=== PATIENT | male | born 1990 | race Hispanic/Latino ===

== ENCOUNTER 2020-06-29 10:47 | Emergency (ER) | payer SELFPAY ==
[2020-06-29] MEDS ORDERED: SODIUM CHLORIDE 0.9% 1000ML 1,000 ML IV ONE (11:02)
[2020-06-29] MEDS ORDERED: LORAZEPAM 2 MG/ML 1 ML VIAL ONE (11:03)
[2020-06-29 11:12] LABS: BASOPHILS % (AUTO) 0.3 % (0.0-5.0); EOSINOPHILS % (AUTO) 0.9 % (0.0-8.0); HEMATOCRIT 46.1 % (42-54); LYMPHOCYTES % (AUTO) 17.7 % (21.0-51.0); MEAN CORPUSCULAR HEMOGLOBIN 31.3 pg (27.0-33.0); MEAN CORPUSCULAR HGB CONC 34.9 g/dL (32.0-36.0); MEAN CORPUSCULAR VOLUME 89.7 fL (79-99); MONOCYTES % (AUTO) 8.2 % (3.0-13.0); NEUTROPHILS % (AUTO) 72.6 % (40.0-77.0); PLATELET COUNT (AUTO) 324 K/uL (130-400); RED BLOOD CELL COUNT(AUTO) 5.14 MIL/uL (4.50-6.20); WHITE BLOOD COUNT (AUTO) 11.9 K/uL (4.8-10.8)
[2020-06-29 11:28] LABS: ALBUMIN 4.6 g/dL (3.5-5.0); BILIRUBIN,TOTAL 1.1 mg/dL (0.2-1.0); CREATININE 1.5 mg/dL (0.5-1.5); TOTAL PROTEIN, SERUM 8.1 g/dL (6.0-8.3)
[2020-06-29] MEDS ORDERED: POTASSIUM CHLORIDE 20 MEQ ERTAB PO ONE (12:00)
== END 2020-06-29 12:37 | disposition home or self-care (01) ==
LOC: EDH 10:47
DX: K12.0 Recurrent oral aphthae (principal); T43.625A Adverse effect of amphetamines, initial encounter; Y92.89 Other specified places as the place of occurrence of the external cause; F31.9 Bipolar disorder, unspecified; F20.9 Schizophrenia, unspecified; Z72.0 Tobacco use
CPT/HCPCS: 36415; 71045; 80053; 84484; 85025; 93005; 96361; 96374; 99285; J2060; J7030

== ENCOUNTER 2021-11-10 02:15 | Emergency (ER) | payer SELFPAY ==
[~2021-11-10] VITALS: Ht 162.6 cm; Wt 65.3 kg
[2021-11-10] MEDS ORDERED: OCTYL 2-CYANOACRYLATE 1 EACH TP ONE (03:24)
[2021-11-10 03:32] VITALS: BP 119/68
== END 2021-11-10 03:34 ==
LOC: EDH 02:15
DX: S61.412A Laceration without foreign body of left hand, initial encounter (principal); S80.812A Abrasion, left lower leg, initial encounter; Z65.3 Problems related to other legal circumstances; W26.8XXA Contact with other sharp object(s), not elsewhere classified, initial encounter; Y93.89 Activity, other specified; Y92.89 Other specified places as the place of occurrence of the external cause; Y99.8 Other external cause status
CPT/HCPCS: 12001

== ENCOUNTER → 2022-04-20 | Emergency (ER) | payer OTHER | END | disposition left against medical advice (07) | LOC: EDH 22:23 | DX: R07.89 Other chest pain (principal); Z53.21 Procedure and treatment not carried out due to patient leaving prior to being seen by health care provider ==

== ENCOUNTER 2022-08-29 19:38 | Emergency (ER) | payer OTHER ==
[~2022-08-29] VITALS: Ht 165.1 cm; Wt 59.0 kg
[2022-08-29 21:02] LABS: BASOPHILS % (AUTO) 0.3 % (0.0-5.0); HEMATOCRIT 42.1 % (42-54); LYMPHOCYTES % (AUTO) 31.2 % (21.0-51.0); MEAN CORPUSCULAR HEMOGLOBIN 31.3 pg (27.0-33.0); MEAN CORPUSCULAR HGB CONC 34.9 g/dL (32.0-36.0); MEAN CORPUSCULAR VOLUME 89.6 fL (79-99); MONOCYTES % (AUTO) 6.6 % (3.0-13.0); NEUTROPHILS % (AUTO) 60.5 % (40.0-77.0); PLATELET COUNT (AUTO) 283 K/uL (130-400); RED CELL DISTRIBUTION WIDTH 11.9 % (11.0-15.5); WHITE BLOOD COUNT (AUTO) 9.6 K/uL (4.8-10.8)
[2022-08-29 21:05] LABS: APPEARANCE,URINE CLEAR (CLEAR); BILIRUBIN,URINE NEGATIVE (NEGATIVE); COLOR,URINE YELLOW (YELLOW); GLUCOSE, URINE (UA) NEGATIVE (NEGATIVE); KETONES,URINE 5 mg/dL (NEGATIVE); LEUKOCYTE ESTERASE ,URINE NEGATIVE Leu/uL (NEGATIVE); NITRATE,URINE NEGATIVE (NEGATIVE); OCCULT BLOOD,URINE NEGATIVE (NEGATIVE); PROTEIN,URINE 30 mg/dL (NEGATIVE)
[2022-08-29] MEDS ORDERED: CEFAZOLIN SODIUM 1 GM VIAL IV STA (21:08)
[2022-08-29 21:12] LABS: MUCUS,URINE RARE LPF (None Seen); SQUAMOUS EPITHELIAL CELL,UR RARE /HPF (0-2); WBC,URINE 0-1 /HPF (0-1)
[2022-08-29 21:13] LABS: AMPHET/METH SCREEN,URINE NEGATIVE (NEGATIVE); BARBITURATE SCREEN, URINE NEGATIVE (NEGATIVE); BENZODIAZEPINES SCREEN,URINE NEGATIVE (NEGATIVE); CANNABINOID SCREEN,URINE POSITIVE (NEGATIVE); COCAINE SCREEN,URINE POSITIVE (NEGATIVE); OPIATE SCREEN,URINE NEGATIVE (NEGATIVE); PHENCYCLIDINE SCREEN,URINE NEGATIVE (NEGATIVE)
[2022-08-29 21:18] LABS: ACETAMINOPHEN < 1 mcg/mL (10-29); ALANINE AMINOTRANSFERASE 29 U/L (12-78); ALBUMIN 4.2 g/dL (3.5-5.0); ALCOHOL, BLOOD < 3 mg/dL (0-10); ASPARTATE AMINOTRANSFERASE 21 U/L (10-37); CARBON DIOXIDE 25 mmol/L (21-32); CHLORIDE 102 mmol/L (101-111); GLOMERULAR FILTR. RATE CALC 104 mL/min (>90); GLUCOSE,RANDOM 87 mg/dL (70-105); SALICYLATE 2.9 mg/dL (2.8-20.0); SODIUM SERUM 137 mmol/L (136-145); TOTAL PROTEIN, SERUM 7.4 g/dL (6.0-8.3); UREA NITROGEN, BLOOD 14 mg/dL (7-18)
[2022-08-29] MEDS ORDERED: CEFAZOLIN SODIUM 1 GM VIAL ONE (21:56)
[2022-08-29] MEDS ORDERED: KETOROLAC 60 MG VIAL (30MG/ML) IM ONE ×2 (23:30→23:34)
[2022-08-30 01:24] VITALS: BP 106/55
== END 2022-08-30 03:58 | disposition left against medical advice (07) ==
LOC: EDH 19:38
DX: T14.91XA Suicide attempt, initial encounter (principal); F31.9 Bipolar disorder, unspecified; F20.9 Schizophrenia, unspecified
CPT/HCPCS: 99284; 96374; 87635; 80053; 80305; 85025; 36415; 81001; 96372; G0481; C9803; J0690; J1885

== ENCOUNTER 2022-10-07 03:30 | Emergency (ER) | payer OTHER ==
[~2022-10-07] VITALS: Ht 165.1 cm; Wt 63.5 kg
[2022-10-07 03:32] VITALS: BP 118/84
== END 2022-10-07 04:00 | disposition left against medical advice (07) ==
LOC: EDH 03:30
DX: F41.9 Anxiety disorder, unspecified (principal); Z53.21 Procedure and treatment not carried out due to patient leaving prior to being seen by health care provider
CPT/HCPCS: 99281

== ENCOUNTER 2024-01-12 18:04 | Emergency (ER) | payer OTHER ==
[~2024-01-12] VITALS: Ht 162.6 cm; Wt 68.0 kg
[2024-01-12] MEDS ORDERED: IBUP-2077 PO (18:31)
[2024-01-12] MEDS ORDERED: HYDR25SU7 RC (18:31)
[2024-01-12] MEDS: IBUPROFEN 800 MG TAB PO ONE (19:09)
[2024-01-12 19:18] VITALS: BP 120/62; PULSE 62; RESP 20; O2SAT 99
== END 2024-01-12 19:24 | disposition home or self-care (01) ==
LOC: EDH 18:04
DX: K64.8 Other hemorrhoids (principal); F20.9 Schizophrenia, unspecified; F31.9 Bipolar disorder, unspecified; Z87.19 Personal history of other diseases of the digestive system
CPT/HCPCS: 99282

== ENCOUNTER 2024-03-29 19:05 | Emergency (ER) | payer SELFPAY ==
[~2024-03-29] VITALS: Ht 162.6 cm; Wt 56.7 kg
[~2024-03-29 19:05] MED LIST: HYDR25SU7 RC; IBUP-2077 PO
[2024-03-29 19:08] VITALS: BP 109/69; PULSE 80; RESP 18; TEMP 97.4
[2024-03-29] MEDS ORDERED: CEPH500T PO (19:21)
[2024-03-29] MEDS: cePHALexin 500 MG CAPSULE PO ONE (19:31)
[2024-03-29] MEDS: ibuPROFEN 800 MG TAB PO ONE (19:32)
== END 2024-03-29 19:44 ==
LOC: EEVIPCON 19:05 → EDH 19:05
DX: T23.212A Burn of second degree of left thumb (nail), initial encounter (principal); X08.8XXA Exposure to other specified smoke, fire and flames, initial encounter; Y93.89 Activity, other specified; Y92.89 Other specified places as the place of occurrence of the external cause; Y99.8 Other external cause status